=== PATIENT | male | born 1945 | race Caucasian/White ===

== ENCOUNTER 2019-01-09 16:34 | Inpatient (IN) ==
[2019-01-09] MEDS ORDERED: LASIX IV ONE (20:50)
[2019-01-09] MEDS ORDERED: SODIUM CHLORIDE 0.9% INJ SCH (20:50)
[2019-01-09] MEDS ORDERED: DUONEB (A & A) INH PRN (20:50)
--- NOTE | 2019-01-09 21:21 | Diag Imaging Result Doc PS360 ---
EXAM: CHEST-2 VIEWS - 01/09/2019 HISTORY: SOB TECHNIQUE: Chest two views COMPARISON: 06/05/2016 FINDINGS: Heart size appears mildly enlarged and increased from prior. There are apparent mild COPD changes. There is mild scarring at the right base. There is apparent small amount of infiltrate at the right lower lobe. There are small right and tiny left pleural effusions. IMPRESSION: Mild cardiomegaly. Apparent mild COPD changes. Small amount of infiltrate at right lower lobe. Small right and tiny left pleural effusions. Electronically signed by Anson Acevedo 01/09/2019 9:18 PM
[2019-01-09 21:36] LABS: BASO% 2.8 % (0.0-0.8); HEMATOCRIT 42.2 % (42.0-52.0); HEMOGLOBIN 13.7 g/dL (14.0-18.0); IMM GRAN% 0.3 % (0.0-0.5); LYMPH% 29.3 % (20.5-51.1); MCH 27.4 PG (27-31); MCHC 32.5 g/dL (33-37); MCV 84.4 FL (81-99); MPV 10.4 FL (7.4-10.4); NEUT% 50.6 % (42.2-75.2); PLT 288 X1000 (130-400); RDW 17.2 % (11.5-14.5); WBC 5.73 X1000 (4.8-10.8)
[2019-01-09 21:37] LABS: BASO# 0.16 X1000 (0.0-0.2); EOS# 0.17 X1000 (0.0-0.7); IMM GRAN# 0.02 X1000 (0.0-0.04); LYMPH# 1.68 X1000 (1.2-3.4)
[2019-01-09 21:53] LABS: AGAP 13; ALBUMIN 4.1 g/dL (3.5-5.0); BUN 16 mg/dL (8-22); CALCIUM 9.5 mg/dL (8.8-10.2); CHLORIDE 93 mmol/L (98-107); COSMO 267; ESTIMATED GFR > 60; GLUCOSE 86 mg/dL (70-104); POTASSIUM 5.1 mmol/L (3.5-5.1); SODIUM 133 mmol/L (136-145); TCO2 27 mmol/L (25-35); TOTAL BILIRUBIN 0.54 mg/dL (0.20-1.00); TOTAL PROTEIN 7.1 g/dL (6.3-8.3)
[2019-01-09 21:54] LABS: ALB/GLOB RATIO 1.4; ALKALINE PHOSPHATASE 87 U/L (32-122); CK PROFILE 98 U/L (24-204); GOT 26 U/L (10-34); GPT 15 U/L (10-44)
[2019-01-09] MEDS ORDERED: SOLU-MEDROL IV SCH (22:00)
[2019-01-09 22:24] LABS: ALLEN TEST YES; BE 1.4 mmoll (-3.0-3.0); BLOOD TYPE ARTERIAL; HCO3-(ACT) 25.7 mmoll (20.0-26.0); METHB 1.2 % (0.0-1.5); PCO2(98.6) 35 mmHg (35-45); PO2(98.6) 51 mmHg (60-100); SAMPLE BLOOD; SAO2 90.4 % (95.0-100.0); THB 13.8 g/dL (11.5-17.4); pH(98.6) 7.46 (7.35-7.45)
[2019-01-09 22:27] LABS: MODALITY CANNULA; O2HB 87.6 % (95.0-99.0)
--- NOTE | 2019-01-09 22:28 | HISTORY AND PHYSICAL ---
CHIEF COMPLAINT: Shortness of breath, cough, wheezing, hypoxemia, swelling of feet for the last 1 day. HISTORY OF PRESENT ILLNESS: He is a 73-year-old, white gentleman, recently admitted in [facility] with generalized anasarca, pulmonary hypertension, COPD. He was sent home on outpatient home healthcare. The patient refused for Palliative Care consult, wants aggressive treatment. He has been doing very well until yesterday, was brought in with acute respiratory distress, hypoxemia. Even on 2 L, he was very hypoxic, cyanotic. He presented to the hospital for acute COPD exacerbation directly from my office. PAST MEDICAL HISTORY: 1. COPD, dependent on 2 L of oxygen on conserver. 2. Chronic back pain, on pain treatment. 3. Right-sided cor pulmonale. 4. Lower esophageal diverticulum. 5. Acid reflux disease. 6. Glucose intolerance. 7. Hypertension. 8. Kidney stones. PAST SURGICAL HISTORY: TMJ surgery. MEDICATIONS: Amlodipine 5 mg daily, benazepril 40 mg daily, Flexeril 10 p.o. b.i.d., Dulera 200/5 one puff b.i.d., Lasix 40 mg daily, Prilosec 40 mg daily, Spiriva 1 puff daily, nebulizers, Lasix 40 daily, [place] 10 as needed. ALLERGIES: NSAIDs, steroids, mostly anxiety. SOCIAL HISTORY: for 45 years, 2 kids. Lives in [place], retired currently. No smoking. No alcohol. No drug abuse. FAMILY HISTORY: Father at the age of 50 from heart attack. Mother from heart attack. HEALTH MAINTENANCE: Flu vaccine 2016, pneumococcal 2016, last rectal exam May 2017, PSA May 2017, colonoscopy declined. REVIEW OF SYSTEMS: HEENT: No headache. No vision problem. No earache. No sore throat. Neck: No goiter. No lymphadenopathy. No bruit. Cardiopulmonary: No chest pain. Basically, shortness of breath, cough, and wheezing. Gastrointestinal: No nausea, vomiting, abdominal pain. His Castro was replaced by Dr. Porras recently, and swelling of feet. Neurological: No neurological symptoms or weakness. PHYSICAL EXAMINATION: VITAL SIGNS: Temperature is 97 degrees, tachycardic, blood pressure 85/67, and 86% on 2 L while he is in moderate respiratory distress. HEENT: Atraumatic, normocephalic. Pupils equal, react to light. TMs are normal. Nose and throat within normal limits. NECK: Supple. No lymphadenopathy. No goiter. CHEST: Bilateral air entry. Expiratory wheezing. CARDIOVASCULAR: Distant heart sounds. GASTROINTESTINAL: Abdomen soft, nontender. EXTREMITIES: Pedal edema 2+ in both legs. NEUROLOGIC: No obvious neurological deficits. INVESTIGATIONS: Chest x-ray, cardiomegaly, COPD, small pleural effusions. Last echocardiography, ejection fraction 40%, severe pulmonary hypertension. Other investigations are pending. ASSESSMENT AND PLAN: 1. A 73-year-old, white male, with known history of chronic obstructive pulmonary disease, right- sided cor pulmonale, came in to the hospital with acute chronic obstructive pulmonary disease exacerbation. Plan is oxygen, follow up on the pending labs, IV Lasix, IV steroids, IV Levaquin, IV ceftriaxone. 2. Deep venous thrombosis and gastrointestinal prophylaxis with Lovenox, IV Nexium, respectively. 3. Continue bronchodilators. Cardiac healthy diet, daily weights, fluid restrictions. We will also get the previous reports from [facility] and the patient declined palliative care, also left heart catheterization by Dr. Varghese, and will follow up. cc: Santiago Olmos MD
[2019-01-09] MEDS: SOLU-MEDROL IV SCH (22:46)
[2019-01-09] MEDS: PROTONIX IV SCH ×2 (22:46→22:56)
[2019-01-09] MEDS: ROCEPHIN 1 GM in NS 50 ML IV SCH (22:47)
[2019-01-09] MEDS: LEVAQUIN 500 MG/D5W 500 MG/100 ML IVPB IV SCH (22:47)
[2019-01-09] MEDS: NORCO-10 PO SCH (22:48)
[2019-01-10] MEDS: LOVENOX SUBQ SCH (05:06)
[2019-01-10] MEDS: SOLU-MEDROL IV SCH ×3 (06:16→21:49)
[2019-01-10] MEDS: LASIX IV SCH (10:02)
[2019-01-10] MEDS: NORCO-10 PO SCH ×4 (10:02→20:26)
[2019-01-10] MEDS: PATIENT'S OWN MED INH SCH (10:05)
[2019-01-10] MEDS: SPIRIVA INH SCH (10:05)
[2019-01-10] MEDS: LEVAQUIN 500 MG/D5W 500 MG/100 ML IVPB IV SCH (20:32)
[2019-01-10] MEDS: PROTONIX IV SCH (20:32)
[2019-01-10] MEDS: ROCEPHIN 1 GM in NS 50 ML IV SCH (21:49)
--- NOTE | 2019-01-10 22:12 | PROGRESS NOTE ---
DATE: 01/10/2019 SUBJECTIVE: The patient is a little better. Still shortness of breath. No chest pain. OBJECTIVE: Vital signs: Temperature is 98 degrees. Vitals are stable, 98%. HEENT Exam: Within normal limits. Chest: Poor air entry. Cardiovascular: Distant heart sounds. Abdomen: Belly is soft, nontender. Extremities: 1+ pedal edema all the way from the pelvic bone to the legs. He also has edema noted in the scrotal area. LABORATORY DATA: CBC: White cell count 5.7, hematocrit 22, platelets 388,000. ABG: pH is 7.46, pCO2 35, pO2 51 on room air, 87% carboxyhemoglobin. SMA 7 is normal. Cardiac enzymes are normal. CK and troponin were normal. ProBNP was high. ASSESSMENT AND PLAN: 1. A 73-year-old white male admitted to the hospital for acute chronic obstructive pulmonary disease exacerbation with right-sided cor pulmonale. Plan is oxygen, fluid restrictions, daily weights, ins and outs. Continue on nebulizers and Lasix. 2. For chronic obstructive pulmonary disease, on IV Levaquin and IV ceftriaxone. 3. Deep vein thrombosis and gastrointestinal prophylaxis with Lovenox and Protonix. 4. Chronic pain on [place]. We will hold the blood pressure medications for the time being, and Palliative Care consult was initiated. Refused hospice care. LEVEL OF DOCUMENTATION: 25 minutes. cc: Santiago Olmos MD
[2019-01-11] MEDS: PATIENT'S OWN MED INH SCH ×3 (03:19→19:32)
[2019-01-11] MEDS: LASIX IV SCH (09:15)
[2019-01-11] MEDS: LOVENOX SUBQ SCH (09:15)
[2019-01-11] MEDS: SOLU-MEDROL IV SCH ×2 (09:15→18:52)
[2019-01-11] MEDS: SPIRIVA INH SCH (10:08)
[2019-01-11] MEDS: NORCO-10 PO SCH ×5 (13:26→21:42)
--- NOTE | 2019-01-11 14:09 | PROGRESS NOTE ---
DATE: 01/11/2019 SUBJECTIVE: Mr. Whitten has COPD. He has right lower lobe infiltrate. He is feeling better. He has some expiratory wheezing in the chest. Vital signs are stable. He is on IV Rocephin, as well as Levaquin, and he is slowly improving. cc: MD Santiago Boo MD
[2019-01-11] MEDS: PROTONIX IV SCH (21:35)
[2019-01-11] MEDS: ROCEPHIN 1 GM in NS 50 ML IV SCH (21:35)
[2019-01-11] MEDS: LEVAQUIN 500 MG/D5W 500 MG/100 ML IVPB IV SCH (21:36)
[2019-01-12] MEDS: SOLU-MEDROL IV SCH ×3 (00:28→17:48)
[2019-01-12] MEDS: SPIRIVA INH SCH (08:05)
[2019-01-12] MEDS: PATIENT'S OWN MED INH SCH ×2 (08:05→20:00)
[2019-01-12] MEDS: LOVENOX SUBQ SCH (10:01)
[2019-01-12] MEDS: LASIX IV SCH (10:01)
[2019-01-12] MEDS: NORCO-10 PO SCH ×4 (10:01→20:54)
[2019-01-12] MEDS: ROCEPHIN 1 GM in NS 50 ML IV SCH (11:58)
[2019-01-12] MEDS: PROTONIX IV SCH (20:44)
[2019-01-12] MEDS: LEVAQUIN 500 MG/D5W 500 MG/100 ML IVPB IV SCH (20:44)
[2019-01-13] MEDS: SOLU-MEDROL IV SCH ×3 (01:57→17:00)
--- NOTE | 2019-01-13 05:59 | PROGRESS NOTE ---
DATE: 01/12/2019 Mr. Whitten has COPD, right lower lobe pneumonia. He complains about suprapubic pain. He was catheterized for a UTI and had some BPH issues. At present, his bladder is not distended. There is not suprapubic tenderness. He is getting IV Levaquin and Rocephin for the pneumonia. He has COPD. However, there is minimal wheezing right now. The family wants the Levaquin and Rocephin given earlier, which we will change. -3 cc: MD Santiago Boo MD
[2019-01-13] MEDS: NORCO-10 PO SCH ×4 (09:10→20:39)
[2019-01-13] MEDS: LOVENOX SUBQ SCH (09:10)
[2019-01-13] MEDS: ROCEPHIN 1 GM in NS 50 ML IV SCH (09:11)
[2019-01-13] MEDS: SPIRIVA INH SCH (09:28)
[2019-01-13] MEDS: PATIENT'S OWN MED INH SCH ×2 (09:29→20:07)
[2019-01-13] MEDS ORDERED: LASIX IV ONE (18:41)
[2019-01-13] MEDS: PROTONIX IV SCH (20:39)
[2019-01-13] MEDS: LEVAQUIN 500 MG/D5W 500 MG/100 ML IVPB IV SCH (20:39)
--- NOTE | 2019-01-13 21:40 | PROGRESS NOTE ---
DATE: 01/13/2019 SUBJECTIVE: The patient is anxious to go home so I am going to Restart Lasix. He is still is at bedside. OBJECTIVE: Vital signs: His temperature is 98 degrees. Tachycardic, tachypneic, very bronchospastic 2.5 L, 96%. HEENT Exam: Within normal limits. Neck: Supple. No lymphadenopathy. No goiter. Chest: Poor air entry. Cardiovascular: Heart sounds are regular. Abdomen: Belly is soft, obese, nontender. Good bowel sounds. Extremities: 3+ pedal edema in both legs. ASSESSMENT AND PLAN: 1. Chronic obstructive pulmonary disease with cor pulmonale. We will give IV Lasix 140 mg q.12, currently on IV steroids, Levaquin, ceftriaxone. 2. Deep vein thrombosis and gastrointestinal prophylaxis. Continue the pain management. I explained the situation, fluid restrictions, daily weights, and we will follow up. LEVEL OF DOCUMENTATION: 25 minutes. cc: Santiago Olmos MD MTDD
[2019-01-14] MEDS: SOLU-MEDROL IV SCH ×4 (03:42→23:17)
[2019-01-14] MEDS: LASIX IV SCH ×2 (06:20→17:25)
[2019-01-14] MEDS: SPIRIVA INH SCH (08:16)
[2019-01-14] MEDS: PATIENT'S OWN MED INH SCH ×2 (08:16→20:11)
[2019-01-14] MEDS: LOVENOX SUBQ SCH (09:37)
[2019-01-14] MEDS: ROCEPHIN 1 GM in NS 50 ML IV SCH (09:37)
[2019-01-14] MEDS: NORCO-10 PO SCH ×4 (09:39→20:11)
[2019-01-14] MEDS: LEVAQUIN 500 MG/D5W 500 MG/100 ML IVPB IV SCH (20:09)
[2019-01-14] MEDS: PROTONIX PO SCH (20:12)
--- NOTE | 2019-01-14 22:17 | PROGRESS NOTE ---
DATE: 01/14/2019 SUBJECTIVE: The patient is getting IV Lasix, not able to monitor ins and outs. He got about 1600. Decreased shortness of breath. OBJECTIVE: Vitals: Stable. Temperature is 98 degrees, tachycardic. His weight is reported at 189. He was 196. Chest: Bilateral air entry. Cardiovascular: Heart sounds are regular. Abdomen: Belly is soft and nontender. Good bowel sounds. Extremities: 2+ pedal edema. ASSESSMENT: 1. Right-sided cor pulmonale, chronic obstructive pulmonary disease. 2. Generalized anasarca. PLAN: 1. IV Lasix twice daily. Optimize treatment for chronic obstructive pulmonary disease and fluid restrictions as discussed. 2. Continue present treatment. We will closely monitor his daily weights. LEVEL OF DOCUMENTATION: 25 minutes. cc: Santiago Olmos MD
[2019-01-15] MEDS: LASIX IV SCH ×2 (07:27→16:36)
[2019-01-15] MEDS: SPIRIVA INH SCH (08:14)
[2019-01-15] MEDS: PATIENT'S OWN MED INH SCH ×2 (08:14→20:05)
[2019-01-15 09:07] LABS: AGAP 11; BUN 27 mg/dL (8-22); CHLORIDE 92 mmol/L (98-107); COSMO 285; CREATININE 0.7 mg/dL (0.7-1.2); ESTIMATED GFR > 60; GLUCOSE 167 mg/dL (70-104); POTASSIUM 4.2 mmol/L (3.5-5.1); SODIUM 138 mmol/L (136-145); TCO2 35 mmol/L (25-35)
[2019-01-15] MEDS: NORCO-10 PO SCH ×4 (09:36→20:15)
[2019-01-15] MEDS: LOVENOX SUBQ SCH (09:36)
[2019-01-15] MEDS: ROCEPHIN 1 GM in NS 50 ML IV SCH (09:36)
[2019-01-15] MEDS: SOLU-MEDROL IV SCH ×3 (09:36→23:42)
[2019-01-15] MEDS: PROTONIX PO SCH (20:16)
[2019-01-15] MEDS: LEVAQUIN 500 MG/D5W 500 MG/100 ML IVPB IV SCH (20:17)
[2019-01-16] MEDS: LASIX IV SCH ×2 (05:33→16:44)
[2019-01-16 07:26] LABS: AGAP 12; BUN 30 mg/dL (8-22); CALCIUM 9.7 mg/dL (8.8-10.2); CHLORIDE 92 mmol/L (98-107); COSMO 290; ESTIMATED GFR > 60; GLUCOSE 184 mg/dL (70-104); POTASSIUM 3.8 mmol/L (3.5-5.1); SODIUM 140 mmol/L (136-145); TCO2 36 mmol/L (25-35)
[2019-01-16] MEDS: SPIRIVA INH SCH (09:15)
[2019-01-16] MEDS: PATIENT'S OWN MED INH SCH ×2 (09:15→19:57)
[2019-01-16] MEDS: SOLU-MEDROL IV SCH (09:29)
[2019-01-16] MEDS: LOVENOX SUBQ SCH (09:29)
[2019-01-16] MEDS: ROCEPHIN 1 GM in NS 50 ML IV SCH (09:29)
[2019-01-16] MEDS: NORCO-10 PO SCH ×4 (09:32→20:27)
[2019-01-16] MEDS: PROTONIX PO SCH (20:27)
[2019-01-16] MEDS: LEVAQUIN 500 MG/D5W 500 MG/100 ML IVPB IV SCH (20:28)
--- NOTE | 2019-01-16 21:45 | PROGRESS NOTE ---
DATE: 01/16/2019 SUBJECTIVE: Patient is getting better. Decreased shortness of breath. OBJECTIVE: Vital Signs: Temperature is 97 degrees. Tachycardic. Vitals are stable. 2.5 L, 98%. He has good diuresis. Inputs and outputs -2.2 L. Weight is 183 pounds. So far, he lost 13 pounds. Lungs: Decreased air entry. Heart: Sounds are distant. Abdomen: Belly is soft, nontender. Extremities: He has 2+ edema all the way to the sacral area. LABS: Sodium 140, potassium 3.8, BUN 30, creatinine 1.0, glucose 194. ASSESSMENT AND PLAN: 1. Chronic obstructive pulmonary disease exacerbation. Continue on Levaquin, ceftriaxone. Decrease intravenous methylprednisolone. 2. Continue intravenous Lasix for right-sided cor pulmonale. 3. Deep venous thrombosis and gastrointestinal prophylaxis as per order sheet. 4. Fluid restriction. 5. Daily weights. I spent about more than 30 minutes at bedside with his family. Also initiated heart failure protocol with [facility] as an outpatient and will follow up. LEVEL OF DOCUMENTATION: 25 minutes. cc: Santiago Olmos MD
[2019-01-17] MEDS: LASIX IV SCH (05:00)
[2019-01-17 07:34] VITALS: BP 104/74
[2019-01-17] MEDS: ROCEPHIN 1 GM in NS 50 ML IV SCH (08:53)
[2019-01-17] MEDS: LOVENOX SUBQ SCH ×2 (08:53→09:00)
[2019-01-17] MEDS: SOLU-MEDROL IV SCH (08:53)
[2019-01-17] MEDS: NORCO-10 PO SCH (08:53)
[2019-01-17] MEDS: SPIRIVA INH SCH (09:32)
[2019-01-17] MEDS: PATIENT'S OWN MED INH SCH (09:34)
--- NOTE | 2019-01-18 22:04 | DISCHARGE SUMMARY ---
ADMISSION DATE: 01/09/2019 DISCHARGE DATE: 01/17/2019 DISCHARGING DIAGNOSIS: Acute chronic obstructive pulmonary disease exacerbation. SECONDARY DIAGNOSIS: 1. 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 2. Acid reflux disease, glucose intolerance, hypertension, kidney stones, chronic back pain due to lumbar spondylosis. BRIEF HISTORY: Please see the H and P that was done on 01/09/2019. In brief he is a 73-year-old white gentleman basically admitted to the hospital from my office with shortness of breath, cough, wheezing, generalized anasarca due to cor pulmonale. Apparently was recently admitted in [facility], sent home on palliative care. The patient refused to go for hospice. He is not smoking. He is on oxygen 2 L. He is noncompliant with instructions. He has diffuse edema from sacrum down all the way to the feet. HOSPITAL COURSE: 1. He was given oxygen, bronchodilators, IV steroids, IV antibiotics for COPD exacerbation. 2. He was advised to have fluid restrictions, daily weights and low-salt diet. 3. He was given IV Lasix with good diuresis. He lost about 15 pounds. 4. Discharge weight was 185 pounds. 5. I did arrange outpatient [facility] for fluid status balance. The rest of the hospital course was uneventful. LABORATORY DATA: CBC. White cell count 5.7, hematocrit 42, platelets 288,000. ABG pH is 7.46, pCO2 35, PO2 51 on room air. Sodium 140, potassium 3.8, chloride 92, BUN 30, creatinine 1.0, glucose 184, calcium 9.7. Liver function tests were normal. ProBNP 10,000. Albumin 4.1. DISCHARGE INSTRUCTIONS: 1. Oxygen 2 L. 2. Daily weights. 3. Fluid restrictions. 4. I's and O's with low-salt diet. 5. Lotensin 20 mg daily, Bevespi inhaler 2 puffs twice daily, Spiriva 1 puff daily, Prilosec 40 daily, [place] as needed for pain, amlodipine 5 mg daily, Lasix 80 mg daily, potassium 20 mEq daily. Outpatient [facility] for the fluid balance Follow up in my office in 2 weeks. cc: Santiago Olmos MD MTDD
== END 2019-01-17 10:45 | disposition home health service (06) | DRG 292 ==
LOC: DIRADM 16:34 → 3N 19:25
PROVIDERS: ADMIT Internal Medicine; ATTEND Internal Medicine